=== PATIENT | male | born 2005 | race African-American/Black ===

== ENCOUNTER 2023-10-16 08:18 | Emergency (ER) | payer OTHER ==
[2023-10-16 09:22] LABS: BASOPHILS # (AUTO) 0.1 10^3/uL (0.0-0.1); BASOPHILS % (AUTO) 0.8 %; EOSINOPHILS # (AUTO) 0.1 10^3/uL (0.0-0.7); HGB - HEMOGLOBIN 13.2 g/dL (14.0-18.0); LYMPHOCYTES # (AUTO) 1.5 10^3/uL (1.5-3.5); LYMPHOCYTES % (AUTO) 25.8 %; MEAN CORPUSCULAR HEMOGLOBIN 30.4 pg (27.0-31.0); MEAN CORPUSCULAR HGB CONC 32.2 g/dL (32.0-36.0); MEAN CORPUSCULAR VOLUME 94.5 fL (80.0-94.0); MEAN PLATELET VOLUME 9.3 fL (7.4-11.4); MONOCYTES # (AUTO) 0.4 10^3/uL (0.0-1.0); NEUTROPHILS # (AUTO) 3.9 10^3/uL (1.5-6.6); NEUTROPHILS % (AUTO) 64.9 %; PLT - PLATELET COUNT 321 10^3/uL (130-450); RED BLOOD COUNT 4.34 10^6/uL (4.70-6.10); RED CELL DISTRIBUTION WIDTH 12.6 % (12.0-15.0)
[2023-10-16 09:34] LABS: ALBUMIN 4.4 g/dL (3.2-5.5); ALBUMIN/GLOBULIN RATIO 1.3 (1.0-2.2); BILIRUBIN,TOTAL 0.6 mg/dL (0.2-1.0); CALCIUM 9.6 mg/dL (8.5-10.3); CREATININE 1.1 mg/dL (0.6-1.3); POTASSIUM 4.1 mmol/L (3.5-4.5); TOTAL PROTEIN 7.9 g/dL (6.4-8.9)
[2023-10-16 09:38] LABS: BILIRUBIN,URINE NEGATIVE (NEGATIVE); CLARITY,URINE CLEAR (CLEAR); GLUCOSE, URINE (UA) NEGATIVE (NEGATIVE); KETONES,URINE (UA) NEGATIVE (NEGATIVE); LEUKOCYTE ESTERASE, URINE NEGATIVE (NEGATIVE); NITRITE,URINE NEGATIVE (NEGATIVE); OCCULT BLOOD,URINE NEGATIVE (NEGATIVE); PROTEIN,URINE NEGATIVE (NEGATIVE); UROBILINOGEN,URINE 0.2 (NORMAL) E.U./dL (NORMAL)
--- NOTE | 2023-10-16 11:45 | ED Physician Documentation ---
PD HPI ABD PAIN - Stated complaint Stated Complaint: STOMACH PX - Chief complaint Chief Complaint: Abd Pain - History obtained from History obtained from: Patient - History of Present Illness Pain level max: 7 Pain level now: 3 Quality: Cramping Location: All over / everywhere Associated symptoms: Nausea, Vomiting. No: Fever, Hematemesis, Melena, Hematochezia, Hematuria, Chest pain, Dizzy Recently seen: Not recently seen - Additional information Additional information: Patient is a 18-year-old male who presents to the emergency department with diffuse cramping abdominal pain for the past 3 days accompanied by nausea, vomiting and diarrhea. No fevers. No chills. No recent travel. No recent antibiotics. Not on any medications at home. No blood in the stool. No recent camping or travel. Has not had similar symptoms previously. He states that the cramping worsens after he eats. Review of Systems Constitutional: denies: Fever, Chills Respiratory: denies: Cough Skin: denies: Rash Musculoskeletal: denies: Neck pain, Back pain Neurologic: denies: Headache PD PAST MEDICAL HISTORY - Past Medical History Past Medical History: No - Past Surgical History Past Surgical History: No - Present Medications Home Medications: Ambulatory Orders Medication Instructions Recorded Confirmed Dicyclomine [Bentyl] 10 mg PO QID PRN #30 cap 10/16/23 Ondansetron Odt [Zofran] 4 mg TL Q6H PRN #10 tablet 10/16/23 - Allergies Allergies/Adverse Reactions: Allergies Allergy/AdvReac Type Severity Reaction Status Date / Time No Known Drug Allergies Allergy Verified 10/16/23 11:33 - Social History Does the pt smoke?: No Smoking Status: Never smoker Does the pt drink ETOH?: Yes - Immunizations Immunizations are current?: Yes PD ED PE NORMAL - Vitals Vital signs reviewed: Yes - General General: Alert and oriented X 3, No acute distress - HEENT HEENT: Moist mucous membranes - Neck Neck: Supple, no meningeal sign - Cardiac Cardiac: RRR, Strong equal pulses - Respiratory Respiratory: No respiratory distress, Clear bilaterally - Abdomen Abdomen: Soft, Non tender, Non distended - Derm Derm: Warm and dry - Neuro Neuro: Alert and oriented X 3 - Psych Psych: Normal mood, Normal affect Results - Vitals Vitals: Vital Signs - 24 hr 10/16/23 10/16/23 08:25 12:07 Temperature 36.3 C L 36.3 C L Heart Rate 91 63 Respiratory 16 18 Rate Blood Pressure 133/81 H 114/74 O2 Saturation 100 100 Oxygen O2 Source Room air - Labs Labs: Laboratory Tests 10/16/23 10/16/23 10/16/23 09:16 09:16 09:29 WBC 6.0 RBC 4.34 L Hgb 13.2 L Hct 41.0 L MCV 94.5 H MCH 30.4 MCHC 32.2 RDW 12.6 Plt Count 321 MPV 9.3 Neut # (Auto) 3.9 Lymph # (Auto) 1.5 [place] # (Auto) 0.4 Eos # (Auto) 0.1 Baso # (Auto) 0.1 Absolute Nucleated RBC 0.00 Nucleated RBC % 0.0 Sodium 138 Potassium 4.1 Chloride 104 Carbon Dioxide 30 Anion Gap 4.0 L BUN 14 Creatinine 1.1 Estimated GFR (MDRD) 103 Glucose 89 Calcium 9.6 Total Bilirubin 0.6 AST 15 ALT 17 Alkaline Phosphatase 82 Total Protein 7.9 Albumin 4.4 Globulin 3.5 Albumin/Globulin Ratio 1.3 Lipase 26 Urine Color YELLOW Urine Clarity CLEAR Urine pH 7.0 Ur Specific [place] 1.020 Urine Protein NEGATIVE Urine Glucose (UA) NEGATIVE Urine Ketones NEGATIVE Urine Occult Blood NEGATIVE Urine Nitrite NEGATIVE Urine Bilirubin NEGATIVE Urine Urobilinogen 0.2 (NORMAL) Ur Leukocyte Esterase NEGATIVE Ur Microscopic Review NOT INDICATED Urine Culture Comments NOT INDICATED PD Medical Decision Making - ED course Complexity details: reviewed results, re-evaluated patient, considered differential, d/w patient ED course: Patient is well-appearing, nontoxic. Afebrile. Abdomen is soft, nontender nondistended on serial exam. Given IV fluids, Toradol, Zofran. Feeling better. No evidence of appendicitis, bowel obstruction or indication for emergent CT. Will place on Bentyl and Zofran for home. Likely viral gastroenteritis given his nausea, vomiting, abdominal cramping and diarrhea. No fevers. No indication for antibiotics. Patient counseled regarding signs and symptoms for which I believe and urgent re-evaluation would be necessary. Patient with good understanding of and agreement to plan and is comfortable going home at this time This document was made in part using voice recognition software. While efforts are made to proofread this document, sound alike and grammatical errors may occur. Departure - Departure Disposition: Home, Self Care Clinical Impression: Viral gastroenteritis Condition: Good Instructions: ED Gastroenteritis Viral Follow-Up: your,doctor in 3 days [Other] Prescriptions: Dicyclomine [Bentyl] 10 mg PO QID PRN #30 cap PRN Reason: Abdominal Pain Ondansetron Odt [Zofran] 4 mg TL Q6H PRN #10 tablet PRN Reason: Nausea / Vomiting Comments: Your prescriptions were sent to [facility] in [place]. As we discussed it appears that you have a viral gastroenteritis, this is usually self-limited and will resolve on its own in approximately 3 to 5 days. Your blood work does not show any acute abnormalities. Your exam is not consistent with appendicitis at this time. Please return if you worsen or fail to improve as expected. Drink plenty of water at home. Forms: PCP List, Activity restrictions
[2023-10-16] MEDS: SODIUM CHLORIDE 0.9% 1,000 ML IV STA (11:55)
[2023-10-16] MEDS: KETOROLAC 30 MG/ML VIAL IVP STA (12:00)
[2023-10-16] MEDS: ONDANSETRON 4 MG/2 ML VIAL IVP STA (12:00)
[2023-10-16 13:13] VITALS: BP 127/82; O2SAT 99
== END 2023-10-16 13:09 | disposition home or self-care (01) ==
LOC: ED 08:18
DX: A08.4 Viral intestinal infection, unspecified (principal)
CPT/HCPCS: 36415; 80053; 81001; 81003; 83690; 85025; 87086; 96374; 99283

== ENCOUNTER 2024-01-07 20:45 | Emergency (ER) | payer OTHER ==
[2024-01-07 20:59] VITALS: BP 137/75; O2SAT 100
--- NOTE | 2024-01-07 21:04 | ED Physician Documentation ---
History of Present Illness - Stated complaint Stated Complaint: - Chief complaint Chief Complaint: General - Additonal information Additional information: 18-year-old male presents with request for STD testing. He states his partner recently told him she had chlamydia. He has no symptoms. No dysuria, hematuria, urinary frequency, rash, fevers or chills, weight loss, cough, shortness of breath, nausea or vomiting, swelling, or other new concerns. He would like isolated STD testing but has no other requests. ROS Constitutional: no fever, no chills Eyes: no visual disturbance, no discharge Ears, Nose, Mouth, Throat: no rhinorrhea, no sore throat Cardiovascular: no chest pain, no palpitations Respiratory: no cough, no shortness of breath Gastrointestinal: no abdominal pain, no vomiting, no diarrhea Genitourinary: no dysuria, no hematuria Musculoskeletal: no back pain, no neck stiffness Skin: no rash, no wound Neurological: no focal weakness, no focal numbness PD PAST MEDICAL HISTORY - Past Medical History Past Medical History: Yes Musculoskeletal: Chronic back pain - Past Surgical History Past Surgical History: No - Present Medications Home Medications: Ambulatory Orders Medication Instructions Recorded Confirmed Dicyclomine [Bentyl] 10 mg PO QID PRN #30 cap 10/16/23 Ondansetron Odt [Zofran] 4 mg TL Q6H PRN #10 tablet 10/16/23 - Allergies Allergies/Adverse Reactions: Allergies Allergy/AdvReac Type Severity Reaction Status Date / Time No Known Drug Allergies Allergy Verified 01/07/24 20:48 - Social History Does the pt smoke?: No Smoking Status: Never smoker Does the pt drink ETOH?: Yes Does the pt have substance abuse?: No - Immunizations Immunizations are current?: Yes - POLST Patient has POLST: No PD ED PE NORMAL - Free text exam Free text exam: Const: no acute distress, non toxic appearing; calm, conversant, pleasant Eyes: PERRLA, EOMI ENT: mucous membranes moist Neck: supple, non-tender Resp: no respiratory distress Card: regular rate and rhythm Abd: non tender diffusely, no rigidity or rebound or guarding Extrem: no deformities, no swelling bilateral lower extremities (nursing home social worker is RN): No testicular or penile swelling, rash or lesions; no testicular tenderness or abnormal lie; no penile tenderness or discharge; no inguinal lymphadenopathy Neuro: ANOx4, newborn photographer grossly intact, grossly intact sensation and strength all extremities Skin: no rash, warm and dry Results - Vitals Vitals: Vital Signs - 24 hr 01/07/24 20:48 Temperature 36.5 C Heart Rate 75 Respiratory 16 Rate Blood Pressure 137/75 H O2 Saturation 100 Oxygen O2 Source Room air - Labs Labs: Laboratory Tests 01/07/24 21:00 Urine Color YELLOW Urine Clarity CLEAR Urine pH 6.0 Ur Specific [place] 1.025 Urine Protein NEGATIVE Urine Glucose (UA) NEGATIVE Urine Ketones NEGATIVE Urine Occult Blood TRACE-LYSE Urine Nitrite NEGATIVE Urine Bilirubin NEGATIVE Urine Urobilinogen 0.2 (NORMAL) Ur Leukocyte Esterase NEGATIVE Ur Microscopic Review NOT INDICATED PD Medical Decision Making - ED course ED course: This asymptomatic patient presents with request for STD testing. I am sending urinalysis, gonorrhea, chlamydia, trichomonas; he declines HIV and syphilis testing, which is currently reasonable. He understands importance of follow-up and testing, and that it may not all return tonight. He has no other new concerns and appears well. UA: No protein, nitrites, or leukocyte esterase. Trace blood present, suitable for outpatient follow-up. Giving instructions to this effect. G/C, trichomonas: I have been told by staff this will not return tonight. Patient knows to follow-up on this outpatient. Note patient declined empiric STD antibiotics, preferring to wait for testing results. Exams and vital signs reassuring. Patient questions answered and plan reviewed. Strong return precautions given. Patient discharged. Departure - Departure Disposition: 01 Home, Self Care Clinical Impression: Exposure to STD Condition: Good Comments: It is important to fully read and understand the below. Please ask us if you have any questions. We sent a urinalysis, and testing for gonorrhea, chlamydia, and trichomonas. Your urinalysis shows trace blood that you need to discuss with your primary doctor but is otherwise reassuring. As discussed, it is important to follow-up on the STD tests within a few days. You also gave me permission to call you with results; I will do so if they return tonight and per our discussion leave a voicemail if you do not answer. However, they may not return tonight. No tests or assessments are perfect, and your condition could post exchange manager time. If your symptoms change or worsen, it is very important you immediately seek medical care. If you have any new or worsening pain, difficulty peeing, rash, pus, shortness of breath, fever, vomiting, confusion, numbness, weakness, or anything else that concerns you, please immediately seek medical care. If you have been prescribed any medications: please read the drug package inserts on how to properly use the medication and any potential side effects. If you had labs (blood tests) or imaging (CT scan or x-rays) done during your visit: please follow up on the results of these with your primary care doctor, as discussed. In addition, please know the results we received today may be preliminary. Our usual practice is to follow up on tests within a few days of a patient's discharge from the Emergency Department and notify you of any changes. These may lead to changes to your treatment plan. However, the best way to obtain and interpret these test results is through your Primary Care Provider. If you need to update your contact information, please stop by the front office help and alert the Registration personnel before you leave the Emergency Department. Thank you for the opportunity to participate in your healthcare. We are always here and happy to see you in the future. Forms: PCP List Discharge Date/Time: 01/07/24 21:56
[2024-01-07 21:16] LABS: BILIRUBIN,URINE NEGATIVE (NEGATIVE); GLUCOSE, URINE (UA) NEGATIVE (NEGATIVE); KETONES,URINE (UA) NEGATIVE (NEGATIVE); LEUKOCYTE ESTERASE, URINE NEGATIVE (NEGATIVE); NITRITE,URINE NEGATIVE (NEGATIVE); OCCULT BLOOD,URINE TRACE-LYSE (NEGATIVE); PROTEIN,URINE NEGATIVE (NEGATIVE); UROBILINOGEN,URINE 0.2 (NORMAL) E.U./dL (NORMAL)
[2024-01-07 21:24] LABS: CLARITY,URINE CLEAR (CLEAR)
[2024-01-07 23:46] LABS: NEISSERIA GONORRHOEAE DNA NEGATIVE (NEGATIVE); TRICHOMONAS VAGINALIS DNA NEGATIVE (NEGATIVE)
[2024-01-07 23:57] LABS: CHLAMYDIA TRACHOMATIS DNA POSITIVE (NEGATIVE)
== END 2024-01-07 21:56 | disposition home or self-care (01) ==
LOC: ED 20:45
DX: Z20.2 Contact with and (suspected) exposure to infections with a predominantly sexual mode of transmission (principal)
CPT/HCPCS: 81001; 81003; 87491; 87591; 87661; 99282; 99283

== ENCOUNTER 2024-01-08 01:18 | Emergency (ER) | payer OTHER ==
[2024-01-08 01:26] VITALS: BP 134/85; O2SAT 100
--- NOTE | 2024-01-08 01:27 | ED Physician Documentation ---
History of Present Illness - Stated complaint Stated Complaint: LAB F/U - Additonal information Additional information: 18-year-old male returns to the ER per my request for treatment of STD. Please see my prior note recently for discussion of history and care. Patient was disc harged with STD test pending, and his chlamydia returned positive. In discussion with patient, we will give full ceftriaxone 1 g IM and 7-day twice daily 100 mg p.o. doxycycline course. He has no other new concerns with no other changes and is otherwise stable. ROS Constitutional: no fever, no chills Eyes: no visual disturbance, no discharge Ears, Nose, Mouth, Throat: no rhinorrhea, no sore throat Cardiovascular: no chest pain, no palpitations Respiratory: no cough, no shortness of breath Gastrointestinal: no abdominal pain, no vomiting, no diarrhea Genitourinary: no dysuria, no hematuria Musculoskeletal: no back pain, no neck stiffness Skin: no rash, no wound Neurological: no focal weakness, no focal numbness PD PAST MEDICAL HISTORY - Past Medical History Musculoskeletal: Chronic back pain - Past Surgical History Past Surgical History: No - Present Medications Home Medications: Ambulatory Orders Medication Instructions Recorded Confirmed Dicyclomine [Bentyl] 10 mg PO QID PRN #30 cap 10/16/23 Ondansetron Odt [Zofran] 4 mg TL Q6H PRN #10 tablet 10/16/23 Doxycycline [Vibramycin] 100 mg PO BID 7 Days #13 tablet 01/08/24 - Allergies Allergies/Adverse Reactions: Allergies Allergy/AdvReac Type Severity Reaction Status Date / Time No Known Drug Allergies Allergy Verified 01/07/24 20:48 - Social History Does the pt smoke?: No Smoking Status: Never smoker Does the pt drink ETOH?: Yes Does the pt have substance abuse?: No - Immunizations Immunizations are current?: Yes - POLST Patient has POLST: No PD ED PE NORMAL - Free text exam Free text exam: Const: no acute distress, non toxic appearing; calm, conversant, pleasant Eyes: PERRLA, EOMI ENT: mucous membranes moist Neck: supple, non-tender Resp: no respiratory distress, clear to auscultation bilaterally Card: regular rate and rhythm, no murmurs Abd: non tender diffusely, no rigidity or rebound or guarding Back: no T or L spine tenderness, no CVA tenderness bilaterally Extrem: no deformities, no swelling bilateral lower extremities Neuro: ANOx4, acidizer helper grossly intact, grossly intact sensation and strength all extremities Skin: no rash, warm and dry Results - Vitals Vitals: Vital Signs - 24 hr 01/08/24 01:24 Temperature 36.8 C Heart Rate 80 Respiratory 16 Rate Blood Pressure 134/85 H O2 Saturation 100 Oxygen O2 Source Room air PD Medical Decision Making - ED course ED course: This patient returns specifically for STD treatment as discussed. I am giving ceftriaxone 1gm IM and doxycycline 100mg PO with prescription for 7d BID as noted previously. He has no new concerns and appears well. Patient comfortable, stable. Discharging with recommendation for abstinence during treatment, outpatient follow up for reassessment of effectiveness of treatment. Exams and vital signs reassuring. Patient questions answered and plan reviewed. Return precautions given. Patient to be discharged. Departure - Departure Disposition: 01 Home, Self Care Clinical Impression: Chlamydia Condition: Good Prescriptions: Doxycycline [Vibramycin] 100 mg PO BID 7 Days #13 tablet Comments: It was a pleasure taking care of you today. It is important to fully read and understand the below. Please ask us if you have any questions. We initiated your antibiotic treatment and are prescribed you 7 days of doxycycline 100 mg to take twice daily. Please abstain from sexual intercourse and be reassessed outpatient for testing prior to resuming sex. Please tell any partners who may not be aware of this STD exposure. No tests or assessments are perfect, and your condition could change control specialist time. If your symptoms change or worsen, it is very important you immediately seek medical care. If you have any new or worsening pain, rash, discharge, bleeding, swelling, shortness of breath, fever, vomiting, confusion, numbness, weakness, or anything else that concerns you, please immediately seek medical care. If you have been prescribed any medications: please read the drug package inserts on how to properly use the medication and any potential side effects. If you had labs (blood tests) or imaging (CT scan or x-rays) done during your visit: please follow up on the results of these with your primary care doctor, as discussed. In addition, please know the results we received today may be preliminary. Our usual practice is to follow up on tests within a few days of a patient's discharge from the Emergency Department and notify you of any changes. These may lead to changes to your treatment plan. However, the best way to obtain and interpret these test results is through your Primary Care Provider. If you need to update your contact information, please stop by the medical front desk coordinator and alert the Registration personnel before you leave the Emergency Department. Thank you for the opportunity to participate in your healthcare. We are always here and happy to see you in the future.
[2024-01-08] MEDS: LIDOCAINE 1% 2 ML VIAL MC ONE (01:54)
[2024-01-08] MEDS: cefTRIAXone 1 GM VIAL IM STA (01:54)
[2024-01-08] MEDS: DOXYCYCLINE 100 MG TABLET PO STA (01:54)
== END 2024-01-08 02:01 | disposition home or self-care (01) ==
LOC: ED 01:18
DX: A56.8 Sexually transmitted chlamydial infection of other sites (principal)
CPT/HCPCS: 96372; 99283; A9270

== ENCOUNTER 2024-01-18 01:31 | Emergency (ER) | payer OTHER ==
--- NOTE | 2024-01-18 02:14 | ED Physician Documentation ---
PD HPI URI - Stated complaint Stated Complaint: CHEST TIGHTNESS/SOA - Chief complaint Chief Complaint: General - History obtained from History obtained from: Patient - History of Present Illness Timing - onset: How many hours ago (onset abruptly 4 hours ago of fevers, aches, sore throat, cough and nausea. Wanting eval and needing note for SIQ.) Timing duration: Hours (4) Timing details: Abrupt onset, Still present Associated symptoms: Fever, Chills, Nasal congestion, Sore throat, NVD Contributing factors: No: Sick contact, Immunocompromised Similar symptoms before: Has not had sx before Review of Systems Constitutional: reports: Fever, Chills, Myalgias, Fatigue Nose: reports: Rhinorrhea / runny nose Throat: reports: Sore throat Respiratory: reports: Cough. denies: Dyspnea GI: reports: Nausea. denies: Abdominal Pain, Vomiting, Diarrhea Neurologic: reports: Generalized weakness, Headache. denies: Near syncope, Confused, Altered mental status PD PAST MEDICAL HISTORY - Past Medical History Musculoskeletal: Chronic back pain - Past Surgical History Past Surgical History: No - Present Medications Home Medications: Ambulatory Orders Medication Instructions Recorded Confirmed Dicyclomine [Bentyl] 10 mg PO QID PRN #30 cap 10/16/23 Ondansetron Odt [Zofran] 4 mg TL Q6H PRN #10 tablet 10/16/23 Doxycycline [Vibramycin] 100 mg PO BID 7 Days #13 tablet 01/08/24 Ibuprofen [Motrin] 600 mg PO TID PRN #25 tab 01/18/24 Ondansetron Odt [Zofran] 4 mg TL Q6H PRN #10 tablet 01/18/24 diphenhydrAMINE ELIXIR [Benadryl 25 mg PO Q6H PRN #240 ea 01/18/24 Elixir] - Allergies Allergies/Adverse Reactions: Allergies Allergy/AdvReac Type Severity Reaction Status Date / Time No Known Drug Allergies Allergy Verified 01/18/24 01:42 - Social History Does the pt smoke?: No Smoking Status: Never smoker Does the pt drink ETOH?: Yes Does the pt have substance abuse?: No - Immunizations Immunizations are current?: Yes - POLST Patient has POLST: No PD ED PE NORMAL - Vitals Vital signs reviewed: Yes - General General: Alert and oriented X 3, Well developed/nourished, Other (he does appear to be unwell, feeling ill, but is alert and conversant, good normal ROM of the neck. COmpalins of fontal AVILA. ) - HEENT HEENT: Atraumatic - Neck Neck: Supple, no meningeal sign, No adenopathy - Cardiac Cardiac: No: RRR (regular but some tachycardic) - Respiratory Respiratory: No respiratory distress, Clear bilaterally - Abdomen Abdomen: Normal bowel sounds, Soft, Non tender, Non distended Results - Vitals Vitals: Oxygen O2 Source Room air - Labs Labs: Laboratory Tests 01/18/24 02:30 Nasal Adenovirus (PCR) NOT DETECTED Nasal B. parapertussis DNA (PCR) NOT DETECTED Nasal Coronavir 229E PCR NOT DETECTED Nasal Coronavir HKU1 PCR NOT DETECTED Nasal Coronavir NL63 PCR NOT DETECTED Nasal Coronavir OC43 PCR NOT DETECTED Nasal Enterovir/Rhinovir PCR DETECTED A Nasal Influenza B PCR NOT DETECTED Nasal Influenza A PCR NOT DETECTED Nasal Parainfluen 1 PCR NOT DETECTED Nasal Parainfluen 2 PCR NOT DETECTED Nasal Parainfluen 3 PCR NOT DETECTED Nasal Parainfluen 4 PCR NOT DETECTED Nasal RSV (PCR) NOT DETECTED Nasal B.pertussis DNA PCR NOT DETECTED Nasal C.pneumoniae (PCR) NOT DETECTED Sean Human Metapneumo PCR NOT DETECTED Nasal M.pneumoniae (PCR) NOT DETECTED Nasal SARS-CoV-2 (PCR) NOT DETECTED PD Medical Decision Making - ED course Complexity details: reviewed results (patient was wishing to get home with his ride. The viral panel was taking a bit longer so I discharged him prior to resu lts. Nursing called him with the Rhinovirus result when it was final. ), considered differential (flu like symptoms abruptly. Had not taken meds as yet. Given Tylenol, Zofran and also benadryl liquid for the sore throat. He does not appear meningitic on exam, but having AVILA frontal area. Presume will need at least 3 days off work initially then to f/u with PCP/base clinic. ), d/w patient Departure - Departure Disposition: 01 Home, Self Care Clinical Impression: Flu-like symptoms Condition: Stable Record reviewed to determine appropriate education?: Yes Instructions: ED Viral Syndrome Prescriptions: diphenhydrAMINE ELIXIR [Benadryl Elixir] 25 mg PO Q6H PRN #240 ea PRN Reason: Pain 1-4 Ibuprofen [Motrin] 600 mg PO TID PRN #25 tab PRN Reason: Pain Ondansetron Odt [Zofran] 4 mg TL Q6H PRN #10 tablet PRN Reason: Nausea / Vomiting Comments: This sounds like a viral type illness. We did do a viral respiratory panel to test for the major ones such as flu, COVID, rhinovirus, metapneumovirus etc. Sometimes the tests are not positive very early in the illness such as your current symptoms being just this evening. However often enough it will detect one of the more major viruses if that was causing your symptoms. The viral panel test does take a little bit of time, sometimes an hour or 2. We can send you home with this and call you in the morning with the results and you can also look it up online and the patient portal. If the entire panel is negative, you could always retest in a day or 2 if you are needing to know the particular virus and to verify that that is the cause. Otherwise currently does not sound like strep throat or a bacterial type infection. We would treat with symptom medication of ondansetron for nausea and Tylenol or ibuprofen for fevers and pains. I would be fairly regular with some ibuprofen 3 times a day for the next several days to week to help and add Tylenol if needed. For the throat itself, honey and water or honey and tea can be helpful. Some of the [id number] throat lozenges can be helpful. Benadryl liquid has a numbing effect as well as helping with congestion. You can use 5 to 10 mL of that and hold it in the back of the throat for little bit before swallowing to get a local effect. Off work for presumably 2 or 3 days at least which will be, timeframe to feel the worst with most of the major viruses. They often will even last for 5 to 7 days. See how you are feeling over the next several days. Stay well-hydrated. Food just able. Follow-up with your primary care. I sent your prescriptions to your preferred pharmacy. Forms: PCP List, Activity restrictions Discharge Date/Time: 01/18/24 02:59
[2024-01-18] MEDS: ONDANSETRON ODT 4 MG Prepack 2 TL PRN (02:52)
[2024-01-18] MEDS: diphenhydrAMINE ELIXIR 25 MG/10 ML UDC PO STA (02:52)
[2024-01-18] MEDS: ONDANSETRON ODT 4 MG TABLET TL STA (02:53)
[2024-01-18] MEDS: ACETAMINOPHEN 500 MG TABLET PO STA (02:53)
[2024-01-18 03:03] VITALS: BP 118/67; O2SAT 100
[2024-01-18 04:10] LABS: B. PARAPERTUSSIS- RESP PCR PAN NOT DETECTED; B. PERTUSSIS- RESP PCR PANEL NOT DETECTED; C. PNEUMONIAE- RESP PCR PANEL NOT DETECTED; CORONAVIRUS 229E-RESP PCR NOT DETECTED; CORONAVIRUS HKU1-RESP PCR NOT DETECTED; CORONAVIRUS NL63-RESP PCR NOT DETECTED; CORONAVIRUS OC43-RESP PCR NOT DETECTED; HUMAN METAPNEUMOVIRUS NOT DETECTED; INFLUENZA A- RESP PCR PANEL NOT DETECTED; INFLUENZA B - RESP PCR PANEL NOT DETECTED; M. PNEUMONIAE- RESP PCR PANEL NOT DETECTED; PARAINFLUENZA VIRUS 1 NOT DETECTED; PARAINFLUENZA VIRUS 2 NOT DETECTED; PARAINFLUENZA VIRUS 3 NOT DETECTED; PARAINFLUENZA VIRUS 4 NOT DETECTED; RHINOVIRUS/ENTEROVIRUS DETECTED; RSV- RESP PCR PANEL NOT DETECTED; SARS-CoV-2 -RESP PCR PANEL NOT DETECTED
== END 2024-01-18 02:59 | disposition home or self-care (01) ==
LOC: ED 01:31
DX: B34.8 Other viral infections of unspecified site (principal)
CPT/HCPCS: 87633; 99283; A9270; Q0162